=== PATIENT | female | born 1980 | race American Indian/Alaskan Native ===

== ENCOUNTER 2017-09-15 16:46 | Emergency (ER) | payer BC ==
[2017-09-15 16:46] VITALS: BMI 26.6
[2017-09-15 16:55] VITALS: O2SAT 100
--- NOTE | 2017-09-15 17:10 | ED PDOC ---
HPI: General Adult Time Seen by Provider: 09/15/17 17:09 Chief Complaint (Nursing): Chest Pain Chief Complaint (Provider): chest pain, vomiting History Per: Patient Additional Complaint(s): 37-year-old female currently 8 weeks presents with nausea, vomiting and chest pain that started yesterday. Patient is unable to keep any liquids or solids. Denies abdominal pain or vaginal bleeding. No associated diarrhea or constipation. OB: Dr. Luna Past Medical History Reviewed: Historical Data, Nursing Documentation, Vital Signs Vital Signs: Last Vital Signs Temp 97.9 F 09/15/17 16:50 Pulse 98 H 09/15/17 17:19 Resp 20 09/15/17 16:50 BP 158/84 H 09/15/17 16:50 Pulse Ox 100 09/15/17 18:56 - Medical History PMH: Asthma Other PMH: (1 ectopic) - Surgical History Other surgeries: surgical removal of ectopic , ovarian cyst removal - Family History Family History: States: No Known Family Hx - Living Arrangements Living Arrangements: With Family - Social History Current smoker - smoking cessation education provided: No Alcohol: None Drugs: Denies - Home Medications Home Medications: Ambulatory Orders Medication Instructions Recorded Albuterol 0.042% [Albuterol 0.042% 3 ml IH Q4H PRN #100 tyra 07/11/15 Inhal Tyra (1.25mg/3ml) UD] Doxylamine/Pyridoxine HCl (B6) 2 tab PO ASDIR #60 tab 09/15/17 [Ki Doherty 10-10 mg Tablet] - Allergies Allergies/Adverse Reactions: Allergies Allergy/AdvReac Type Severity Reaction Status Date / Time oxycodone Allergy URTICARIA Verified 10/31/16 09:34 Review of Systems ROS Statement: Except As Marked, All Systems Reviewed And Found Negative Constitutional: Negative for: Fever, Chills Cardiovascular: Positive for: Chest Pain, Palpitations Respiratory: Positive for: Cough. Negative for: Shortness of Breath Gastrointestinal: Positive for: Nausea, Vomiting. Negative for: Abdominal Pain , Diarrhea Genitourinary Female: Negative for: Dysuria Physical Exam - Reviewed Nursing Documentation Reviewed: Yes Vital Signs Reviewed: Yes - Physical Exam Appears: Positive for: Well, Non-toxic, No Acute Distress Skin: Negative for: Rash Eye Exam: Positive for: Normal appearance ENT: Positive for: Normal ENT Inspection Neck: Positive for: Normal Cardiovascular/Chest: Positive for: Regular Rate, Rhythm Respiratory: Positive for: Normal Breath Sounds. Negative for: Wheezing, Respiratory Distress Gastrointestinal/Abdominal: Positive for: Soft. Negative for: Tenderness, Guarding, Rebound Extremity: Positive for: Normal ROM Neurologic/Psych: Positive for: Alert, Oriented - Laboratory Results Result Diagrams: 09/15/17 17:55 09/15/17 17:55 Urine dip results: Positive for: Blood (moderate). Negative for: Leukocyte Esterase, Nitrate, Ketones, Glucose, Bilirubin, Protein - ECG O2 Sat by Pulse Oximetry: 100 Pulse Ox Interpretation: Normal Medical Decision Making Medical Decision Makin37 year old female with chest pain, nausea and vomiting Plan: EKG CBC CMP Trop IVF IV zofran Patient feels much better after Zofran and was able to tolerate water and crackers in ED with no further emesis. Patient given prescription for Diclegis and was instructed to follow-up with her OB. Disposition - Clinical Impression Clinical Impression: Hyperemesis gravidarum - Patient ED Disposition Is Patient to be Admitted: No Counseled Patient/Family Regarding: Studies Performed, Diagnosis, Need For Followup, Rx Given - Disposition Referrals: Fracisco Luna MD [Staff Provider] - Disposition: Routine/Home Disposition Time: 19:06 Condition: IMPROVED Additional Instructions: Take prescription meds as directed. Drink plenty of fluids and follow bland diet. Follow-up with OB in 1-2 days or return any time if acutely worse. Prescriptions: Doxylamine/Pyridoxine HCl (B6) [Yocastagis Dr 10-10 mg Tablet] 2 tab PO ASDIR #60 tab Instructions: Hyperemesis Gravidarum Forms: [facility] (Faroese) Results - Lab Results Lab Results: 09/15/17 09/15/17 17:55 17:55 WBC 13.8 H RBC 4.48 Hgb 12.9 Hct 39.3 MCV 87.7 MCH 28.8 MCHC 32.8 L RDW 14.1 Plt Count 301 MPV 8.9 Neut % (Auto) 71.9 Lymph % (Auto) 17.4 L Mayes % (Auto) 9.2 Eos % (Auto) 0.7 Baso % (Auto) 0.8 Neut # (Auto) 9.9 H Lymph # (Auto) 2.4 Mayes # (Auto) 1.3 H Eos # (Auto) 0.1 Baso # (Auto) 0.1 Sodium 141 Potassium 4.0 Chloride 102 Carbon Dioxide 25 Anion Gap 18 BUN 10 Creatinine 0.6 L Est GFR ( Amer) > 60 Est GFR (Non-Af Amer) > 60 Random Glucose 109 H Calcium 9.6 Total Bilirubin 0.3 AST 18 ALT 31 Alkaline Phosphatase 55 Troponin I < 0.0120 Total Protein 7.7 Albumin 4.2 Globulin 3.5 Albumin/Globulin Ratio 1.2
[2017-09-15] MEDS ORDERED: Sodium Chloride 0.9% 1,000 ML IV STA (17:43)
[2017-09-15 18:03] LABS: BASO # 0.1 K/uL (0.0-0.2); BASO % 0.8 % (0.0-2.0); EOS # 0.1 K/uL (0.0-0.7); EOS % 0.7 % (0.0-4.0); HEMOGLOBIN 12.9 g/dL (12.0-16.0); LYMPH # 2.4 K/uL (1.0-4.3); LYMPH % 17.4 % (20.0-40.0); MEAN CELL VOLUME 87.7 fl (81.0-99.0); MEAN CORPUSCULAR HEMOGLOBIN 28.8 pg (27.0-31.0); MEAN CORPUSCULAR HGB CONC 32.8 g/dL (33.0-37.0); MEAN PLATELET VOLUME 8.9 fl (7.2-11.7); MONO # 1.3 K/uL (0.0-0.8); MONO % 9.2 % (0.0-10.0); NEUT # 9.9 K/uL (1.8-7.0); NEUT % 71.9 % (50.0-75.0); RBC 4.48 Mil/uL (3.80-5.20); RED CELL DISTRIBUTION WIDTH 14.1 % (11.5-14.5); WHITE BLOOD COUNT 13.8 K/uL (4.8-10.8)
[2017-09-15 18:15] LABS: ALB/GLOB RATIO 1.2 (1.0-2.1); ALBUMIN 4.2 g/dL (3.5-5.0); ALT/SGPT 31 U/L (9-52); AST/SGOT 18 U/L (14-36); BLOOD UREA NITROGEN 10 mg/dl (7-17); CALCIUM 9.6 mg/dL (8.4-10.2); GFR AFRICAN-AMERICAN > 60; GFR NON-AFRICAN AMERICAN > 60
[2017-09-15 21:06] VITALS: BP 129/74; PULSE 74; RESP 18; TEMP 98.2
== END 2017-09-15 20:20 | disposition home or self-care (01) ==
LOC: H.ER 16:46
DX: O21.0 Mild hyperemesis gravidarum (principal); Z3A.08 8 weeks gestation of pregnancy; J45.909 Unspecified asthma, uncomplicated; Z88.5 Allergy status to narcotic agent
CPT/HCPCS: 80053; 81025; 84484; 85025; 96360; 99283; J2405; J7040